=== PATIENT | female | born 1955 | race Caucasian/White ===

== ENCOUNTER → 2017-04-23 | Outpatient (CLI) | payer OTHER | END | disposition home or self-care (01) | LOC: MAMMO 16:45 | DX: Z12.31 Encounter for screening mammogram for malignant neoplasm of breast (principal) ==

== ENCOUNTER → 2017-12-30 | Outpatient (CLI) | payer OTHER | END | disposition home or self-care (01) | LOC: RAD 11:26 | DX: J20.9 Acute bronchitis, unspecified (principal); F17.200 Nicotine dependence, unspecified, uncomplicated; I10 Essential (primary) hypertension ==

== ENCOUNTER 2018-01-01 12:45 | Inpatient (IN) | payer OTHER ==
[~2018-01-01] VITALS: Ht 165.1 cm; Wt 94.8 kg
[2018-01-01 13:14] VITALS: BP 142/96
[2018-01-01 13:59] LABS: BASO % 0.4 % (0.0-1.0); EOS # 0.1 10*3/uL (0.0-0.4); EOS % 0.8 % (1.0-4.0); HEMATOCRIT 45.5 % (37.0-47.0); HEMOGLOBIN 14.9 g/dl (12.0-16.0); LYMPH % 29.5 % (27.0-41.0); MEAN CELL VOLUME 83.8 fl (81.0-99.0); MEAN CORPUSCULAR HGB 27.4 pg (27.0-31.0); MEAN CORPUSCULAR HGB CONC 32.7 g/dl (33.0-37.0); MEAN PLATELET VOLUME 9.5 fl (9.6-12.3); MONO # 0.7 10*3/uL (0.1-1.0); MONO % 6.4 % (3.0-9.0); NEUT # 6.3 10*3/uL (2.3-7.9); NEUT % 62.6 % (47.0-73.0); PLATELET COUNT AUTOMATED 319 10*3/uL (130-400); RED BLOOD COUNT 5.43 10*6/uL (4.10-5.10); RED CELL DISTRI WIDTH 14.9 % (0-14.5); WHITE BLOOD COUNT 10.1 10*3/uL (4.8-10.8)
[2018-01-01 14:16] LABS: ALKALINE PHOSPHATASE 79 U/L (45-117); BUN 17 mg/dl (7-24); CHLORIDE 101 mmol/L (98-107); POTASSIUM 4.1 mmol/L (3.5-5.1); SGOT/AST 19 IU/L (3-35); SGPT/ALT 34 U/L (12-78); SODIUM 136 mmol/L (136-145); TOTAL PROTEIN 7.7 gm/dL (6.4-8.2)
[2018-01-01 14:20] LABS: TROPONIN I < 0.015 ng/ml (<0.045)
[2018-01-01 14:44] VITALS: BP 115/78
[2018-01-01 15:10] VITALS: BP 127/71
[2018-01-01 16:00] VITALS: BP 127/71
[2018-01-01 20:00] VITALS: BP 142/74
[2018-01-02] VITALS: BP 131/70
[2018-01-02 02:13] LABS: BASO % 0.1 % (0.0-1.0); HEMATOCRIT 40.7 % (37.0-47.0); HEMOGLOBIN 13.3 g/dl (12.0-16.0); LYMPH # 1.1 10*3/uL (1.3-4.4); LYMPH % 10.7 % (27.0-41.0); MEAN CELL VOLUME 84.3 fl (81.0-99.0); MEAN CORPUSCULAR HGB 27.5 pg (27.0-31.0); MEAN CORPUSCULAR HGB CONC 32.7 g/dl (33.0-37.0); MEAN PLATELET VOLUME 9.6 fl (9.6-12.3); MONO # 0.2 10*3/uL (0.1-1.0); MONO % 1.5 % (3.0-9.0); NEUT # 9.1 10*3/uL (2.3-7.9); NEUT % 87.3 % (47.0-73.0); PLATELET COUNT AUTOMATED 290 10*3/uL (130-400); RED BLOOD COUNT 4.83 10*6/uL (4.10-5.10); RED CELL DISTRI WIDTH 14.7 % (0-14.5); WHITE BLOOD COUNT 10.5 10*3/uL (4.8-10.8)
[2018-01-02 02:31] LABS: ALBUMIN 3.6 gm/dl (3.1-4.5); ALKALINE PHOSPHATASE 69 U/L (45-117); BUN 16 mg/dl (7-24); CHLORIDE 99 mmol/L (98-107); CHOLESTEROL 150 mg/dL (<200); CREATININE 0.88 mg/dL (0.55-1.02); PHOSPHOROUS 2.8 mg/dL (2.5-4.9); POTASSIUM 3.8 mmol/L (3.5-5.1); SGOT/AST 21 IU/L (3-35); SGPT/ALT 29 U/L (12-78); SODIUM 135 mmol/L (136-145); TOTAL PROTEIN 7.1 gm/dL (6.4-8.2); TRIGLYCERIDES 51 mg/dl (<150); VLDL CHOLESTEROL 10 mg/dL (6-40)
[2018-01-02 02:37] LABS: FREE T4 1.12 ng/dl (0.76-1.46); HDL CHOLESTEROL 32 mg/dl (40-60); LDL CHOLESTEROL 108 mg/dL (9-159); THYROID STIM HORMONE (HS) 0.621 uIU/ml (0.358-4.75)
[2018-01-02 07:57] LABS: VITAMIN D, 25-HYDROXY 16.4 ng/mL (30-100)
[2018-01-02 08:46] VITALS: BP 119/61
[2018-01-02 12:00] VITALS: BP 150/61
[2018-01-02 16:00] VITALS: BP 140/68
[2018-01-02 20:00] VITALS: BP 139/71
[2018-01-03] VITALS: BP 111/54
[2018-01-03 07:47] LABS: BASO # 0.1 10*3/uL (0.0-0.1); BASO % 0.3 % (0.0-1.0); EOS % 0.1 % (1.0-4.0); HEMATOCRIT 39.1 % (37.0-47.0); HEMOGLOBIN 12.7 g/dl (12.0-16.0); LYMPH # 4.9 10*3/uL (1.3-4.4); LYMPH % 26.9 % (27.0-41.0); MEAN CELL VOLUME 85.6 fl (81.0-99.0); MEAN CORPUSCULAR HGB 27.8 pg (27.0-31.0); MEAN CORPUSCULAR HGB CONC 32.5 g/dl (33.0-37.0); MEAN PLATELET VOLUME 9.9 fl (9.6-12.3); MONO % 5.4 % (3.0-9.0); NEUT # 12.2 10*3/uL (2.3-7.9); NEUT % 66.8 % (47.0-73.0); PLATELET COUNT AUTOMATED 326 10*3/uL (130-400); RED BLOOD COUNT 4.57 10*6/uL (4.10-5.10); RED CELL DISTRI WIDTH 15.3 % (0-14.5); WHITE BLOOD COUNT 18.2 10*3/uL (4.8-10.8)
[2018-01-03 08:00] VITALS: BP 142/81
[2018-01-03 08:14] LABS: ALBUMIN 3.5 gm/dl (3.1-4.5); BUN 16 mg/dl (7-24); CHLORIDE 102 mmol/L (98-107); CREATININE 0.73 mg/dL (0.55-1.02); POTASSIUM 3.8 mmol/L (3.5-5.1); SGOT/AST 16 IU/L (3-35); SGPT/ALT 28 U/L (12-78); SODIUM 139 mmol/L (136-145); TOTAL PROTEIN 6.5 gm/dL (6.4-8.2)
[2018-01-03 08:15] LABS: ALKALINE PHOSPHATASE 67 U/L (45-117)
[2018-01-03] MEDS ORDERED: NICOTINE PATCH1 EAC2 TD (10:04)
[2018-01-03] MEDS ORDERED: VITAMIN D-32000 UNI1 PO (10:04)
[2018-01-03] MEDS ORDERED: PREDNISONE10 MG PO (10:04)
[2018-01-03] MEDS ORDERED: LEVOFLOXACIN500 MG PO (10:04)
== END 2018-01-03 11:50 | disposition home or self-care (01) | DRG 189 ==
LOC: ED 12:45 → 5E 14:32 → EDHOLD 14:32 → 5E 14:44
PROVIDERS: Emergency Medicine; Internal Medicine; Registered Nurse
DX: J96.01 Acute respiratory failure with hypoxia (principal); E87.2 Acidosis; J44.0 Chronic obstructive pulmonary disease with (acute) lower respiratory infection; J44.1 Chronic obstructive pulmonary disease with (acute) exacerbation; J20.9 Acute bronchitis, unspecified; I10 Essential (primary) hypertension; Z78.9 Other specified health status; Z72.0 Tobacco use; Z90.710 Acquired absence of both cervix and uterus; Z90.49 Acquired absence of other specified parts of digestive tract; Z81.8 Family history of other mental and behavioral disorders; Z82.49 Family history of ischemic heart disease and other diseases of the circulatory system; Z84.89 Family history of other specified conditions

== ENCOUNTER → 2018-04-03 | Outpatient (CLI) | payer OTHER ==
[~2018-04-03] MED LIST: LEVOFLOXACIN500 MG PO; NICOTINE PATCH1 EAC2 TD; PREDNISONE10 MG PO; VITAMIN D-32000 UNI1 PO
[2018-04-03 10:07] LABS: BUN 18 mg/dl (7-24); CREATININE 0.88 mg/dL (0.55-1.02)
== END | disposition home or self-care (01) ==
LOC: LAB 09:37 → CT 10:00
PROVIDERS: Internal Medicine Critical Care Medicine
DX: R91.1 Solitary pulmonary nodule (principal)

== ENCOUNTER → 2020-05-06 | Outpatient (CLI) | payer OTHER | END | disposition home or self-care (01) | LOC: RAD 12:03 | DX: M54.42 Lumbago with sciatica, left side (principal) ==

== ENCOUNTER → 2020-07-01 | Outpatient (CLI) | payer OTHER | END | disposition home or self-care (01) | LOC: MRI 12:27 | DX: M43.16 Spondylolisthesis, lumbar region (principal); M47.816 Spondylosis without myelopathy or radiculopathy, lumbar region; M47.817 Spondylosis without myelopathy or radiculopathy, lumbosacral region; M48.061 Spinal stenosis, lumbar region without neurogenic claudication ==

== ENCOUNTER → 2020-10-05 | Outpatient (CLI) | payer OTHER | END | disposition home or self-care (01) | LOC: RAD 16:03 | PROVIDERS: ATTEND Internal Medicine | DX: Z01.818 Encounter for other preprocedural examination (principal) ==

== ENCOUNTER → 2021-11-30 | Outpatient (CLI) | payer MEDICARE, OTHER | END | disposition home or self-care (01) | LOC: CT 13:40 | PROVIDERS: ATTEND Internal Medicine | DX: R22.1 Localized swelling, mass and lump, neck (principal); M25.78 Osteophyte, vertebrae ==

== ENCOUNTER 2022-02-20 05:22 | Inpatient (IN) | payer MEDICARE, OTHER ==
[~2022-02-20] VITALS: Ht 157.4 cm; Wt 103.1 kg
[2022-02-20 05:33] VITALS: BP 173/93
[2022-02-20 06:01] LABS: BASO % 0.4 % (0.0-1.0); EOS # 0.1 10*3/uL (0.0-0.4); EOS % 1.4 % (1.0-4.0); HEMATOCRIT 40.7 % (37.0-47.0); LYMPH # 2.7 10*3/uL (1.3-4.4); LYMPH % 27.8 % (27.0-41.0); MEAN CELL VOLUME 85.9 fl (81.0-99.0); MEAN CORPUSCULAR HGB 27.8 pg (27.0-31.0); MEAN CORPUSCULAR HGB CONC 32.4 g/dl (33.0-37.0); MEAN PLATELET VOLUME 9.5 fl (9.6-12.3); MONO # 0.5 10*3/uL (0.1-1.0); NEUT # 6.2 10*3/uL (2.3-7.9); PLATELET COUNT AUTOMATED 315 10*3/uL (130-400); RED BLOOD COUNT 4.74 10*6/uL (4.10-5.10); RED CELL DISTRI WIDTH 14.9 % (0-14.5); WHITE BLOOD COUNT 9.5 10*3/uL (4.8-10.8)
[2022-02-20 06:19] LABS: ALKALINE PHOSPHATASE 69 U/L (45-117); BUN 8 mg/dl (7-24); CHLORIDE 107 mmol/L (98-107); CREATININE 0.71 mg/dL (0.55-1.02); POTASSIUM 3.4 mmol/L (3.5-5.1); SGOT/AST 17 IU/L (3-35); SGPT/ALT 38 U/L (12-78); SODIUM 139 mmol/L (136-145); TOTAL PROTEIN 6.6 gm/dL (6.4-8.2)
[2022-02-20 06:20] LABS: ACT PARTIAL THROMBO TIME 30.5 SECONDS (20.0-32.1)
[2022-02-20 07:31] VITALS: BP 171/97
[2022-02-20 11:40] VITALS: BP 156/92
[2022-02-20] MEDS ORDERED: ALLERGY RELIEF1 EAC3 PO (12:08)
[2022-02-20] MEDS ORDERED: METFORMIN HYDR500 MG PO (12:08)
[2022-02-20] MEDS ORDERED: TRIAMTERENE & H1 CAP PO (12:08)
[2022-02-20] MEDS ORDERED: VITAMIN C500 M4 PO (12:09)
[2022-02-20] MEDS ORDERED: PEPCID20 MG PO (12:09)
[2022-02-20] MEDS ORDERED: PROBIOTIC250 MG PO (12:09)
[2022-02-20 16:00] VITALS: BP 115/59
[2022-02-20 20:00] VITALS: BP 137/77
[2022-02-21] VITALS: BP 135/77
[2022-02-21 06:14] LABS: BUN 12 mg/dl (7-24); CHLORIDE 104 mmol/L (98-107); CREATININE 0.76 mg/dL (0.55-1.02); POTASSIUM 3.8 mmol/L (3.5-5.1); SODIUM 136 mmol/L (136-145)
[2022-02-21 06:25] LABS: THYROID STIM HORMONE (HS) 0.506 uIU/ml (0.358-4.75)
[2022-02-21 06:30] LABS: BASO % 0.1 % (0.0-1.0); HEMATOCRIT 37.9 % (37.0-47.0); LYMPH # 1.7 10*3/uL (1.3-4.4); LYMPH % 11.5 % (27.0-41.0); MEAN CELL VOLUME 84.2 fl (81.0-99.0); MEAN CORPUSCULAR HGB 27.8 pg (27.0-31.0); MEAN PLATELET VOLUME 10.2 fl (9.6-12.3); MONO # 0.4 10*3/uL (0.1-1.0); MONO % 2.7 % (3.0-9.0); NEUT # 12.7 10*3/uL (2.3-7.9); NEUT % 85.1 % (47.0-73.0); PLATELET COUNT AUTOMATED 316 10*3/uL (130-400); RED CELL DISTRI WIDTH 14.7 % (0-14.5); WHITE BLOOD COUNT 14.9 10*3/uL (4.8-10.8)
[2022-02-21 08:00] VITALS: BP 128/68
[2022-02-21 12:00] VITALS: BP 125/69
[2022-02-21 15:53] VITALS: BP 119/60
[2022-02-21 15:54] VITALS: BP 132/56
[2022-02-21 20:00] VITALS: BP 128/75
[2022-02-22] VITALS: BP 161/81
[2022-02-22 06:40] LABS: BASO % 0.1 % (0.0-1.0); HEMATOCRIT 38.3 % (37.0-47.0); LYMPH # 1.7 10*3/uL (1.3-4.4); LYMPH % 11.4 % (27.0-41.0); MEAN CELL VOLUME 84.4 fl (81.0-99.0); MEAN CORPUSCULAR HGB CONC 33.2 g/dl (33.0-37.0); MONO # 0.4 10*3/uL (0.1-1.0); MONO % 2.6 % (3.0-9.0); NEUT # 12.7 10*3/uL (2.3-7.9); PLATELET COUNT AUTOMATED 311 10*3/uL (130-400); RED BLOOD COUNT 4.54 10*6/uL (4.10-5.10); WHITE BLOOD COUNT 14.9 10*3/uL (4.8-10.8)
[2022-02-22 06:57] LABS: CHLORIDE 106 mmol/L (98-107); POTASSIUM 4.1 mmol/L (3.5-5.1); SODIUM 137 mmol/L (136-145)
[2022-02-22 07:02] LABS: BUN 17 mg/dl (7-24); CREATININE 0.69 mg/dL (0.55-1.02)
[2022-02-22 08:00] VITALS: BP 134/71
[2022-02-22] MEDS ORDERED: LASIX20 MG PO (11:46)
[2022-02-22] MEDS ORDERED: PREDNISONE10 MG PO (11:46)
[2022-02-22] MEDS ORDERED: DOXYCYCLINE HY100 M3 PO (11:46)
[2022-02-22] MEDS ORDERED: K-TAB20 MEQ PO (11:46)
[2022-02-22 12:00] VITALS: BP 147/91
== END 2022-02-22 14:50 | disposition home or self-care (01) | DRG 871 ==
LOC: ED 05:22 → EDHOLD 10:08 → 4E 10:08
PROVIDERS: Emergency Medicine; Student in an Organized Health Care Education/Training Program; ADMIT Internal Medicine; ATTEND Internal Medicine
DX: A41.9 Sepsis, unspecified organism (principal); J18.9 Pneumonia, unspecified organism; J96.01 Acute respiratory failure with hypoxia; I50.33 Acute on chronic diastolic (congestive) heart failure; J44.1 Chronic obstructive pulmonary disease with (acute) exacerbation; J44.0 Chronic obstructive pulmonary disease with (acute) lower respiratory infection; Z20.822 Contact with and (suspected) exposure to COVID-19; R65.20 Severe sepsis without septic shock; F17.210 Nicotine dependence, cigarettes, uncomplicated; E87.6 Hypokalemia; R73.9 Hyperglycemia, unspecified; I11.0 Hypertensive heart disease with heart failure; R91.1 Solitary pulmonary nodule; Z90.49 Acquired absence of other specified parts of digestive tract; Z90.710 Acquired absence of both cervix and uterus; Z82.0 Family history of epilepsy and other diseases of the nervous system; Z79.899 Other long term (current) drug therapy; Z71.6 Tobacco abuse counseling; Z82.49 Family history of ischemic heart disease and other diseases of the circulatory system

== ENCOUNTER → 2022-02-26 | Outpatient (CLI) | payer MEDICARE, OTHER ==
[~2022-02-26] MED LIST changes: +ALLERGY RELIEF1 EAC3 PO; +DOXYCYCLINE HY100 M3 PO; +K-TAB20 MEQ PO; +LASIX20 MG PO; +METFORMIN HYDR500 MG PO; +PEPCID20 MG PO; +PROBIOTIC250 MG PO; +TRIAMTERENE & H1 CAP PO; +VITAMIN C500 M4 PO
[2022-02-26 08:19] LABS: HEMATOCRIT 46.7 % (37.0-47.0); MEAN CELL VOLUME 84.8 fl (81.0-99.0); MEAN CORPUSCULAR HGB 27.8 pg (27.0-31.0); MEAN CORPUSCULAR HGB CONC 32.8 g/dl (33.0-37.0); MEAN PLATELET VOLUME 9.8 fl (9.6-12.3); PLATELET COUNT AUTOMATED 430 10*3/uL (130-400); RED BLOOD COUNT 5.51 10*6/uL (4.10-5.10); RED CELL DISTRI WIDTH 15.2 % (0-14.5); WHITE BLOOD COUNT 21.4 10*3/uL (4.8-10.8)
[2022-02-26 08:20] LABS: MANUAL DIFF REFLEX YES
[2022-02-26 08:37] LABS: CHLORIDE 102 mmol/L (98-107); POTASSIUM 3.9 mmol/L (3.5-5.1); SODIUM 136 mmol/L (136-145)
[2022-02-26 08:50] LABS: ALKALINE PHOSPHATASE 72 U/L (45-117); BUN 21 mg/dl (7-24); CREATININE 0.86 mg/dL (0.55-1.02); SGOT/AST 14 IU/L (3-35); SGPT/ALT 40 U/L (12-78); TOTAL PROTEIN 7.1 gm/dL (6.4-8.2)
[2022-02-26 08:59] LABS: ATYPICAL LYMPHS 7 % (0-0); BASOPHILS 2 % (0-1); PLATELET SUFFICIENCY HIGH (NORMAL); POLYCHROMASIA SLIGHT; TOTAL CELLS COUNTED 100 #CELLS
== END | disposition home or self-care (01) ==
LOC: LAB 07:52
PROVIDERS: ATTEND Internal Medicine
DX: E87.6 Hypokalemia (principal); R73.9 Hyperglycemia, unspecified

== ENCOUNTER → 2022-07-27 | Outpatient (CLI) | payer MEDICARE, OTHER ==
[~2022-07-27] MED LIST changes: +FISH OIL 1,2001 EAC3 PO; +VITAMIN C1000 M5 PO; -VITAMIN C500 M4 PO
== END | disposition home or self-care (01) ==
LOC: CARD 02:16
PROVIDERS: ATTEND Internal Medicine
DX: R07.89 Other chest pain (principal)

== ENCOUNTER → 2022-08-09 | Outpatient (CLI) | payer MEDICARE, OTHER | END | disposition home or self-care (01) | LOC: MAMMO 09:43 | PROVIDERS: ATTEND Internal Medicine | DX: Z12.31 Encounter for screening mammogram for malignant neoplasm of breast (principal) ==

== ENCOUNTER → 2023-10-15 | Outpatient (CLI) | payer MEDICARE, OTHER | END | disposition home or self-care (01) | LOC: RAD 11:54 | PROVIDERS: ATTEND Speech-Language Pathologist | DX: R06.02 Shortness of breath (principal); M48.04 Spinal stenosis, thoracic region ==

== ENCOUNTER → 2024-11-25 | Outpatient (CLI) | payer MEDICARE, OTHER | END | disposition home or self-care (01) | LOC: RAD 12:49 | PROVIDERS: ATTEND Nurse Practitioner Family | DX: I51.7 Cardiomegaly (principal); R06.00 Dyspnea, unspecified ==

== ENCOUNTER → 2025-03-25 | Outpatient (CLI) | payer MEDICARE, OTHER | END | disposition home or self-care (01) | LOC: MAMMO 10:29 | PROVIDERS: ATTEND Nurse Practitioner Family | DX: Z12.31 Encounter for screening mammogram for malignant neoplasm of breast (principal); N64.89 Other specified disorders of breast; R92.1 Mammographic calcification found on diagnostic imaging of breast ==

== ENCOUNTER 2025-10-27 13:11 | Inpatient (IN) | payer MEDICARE ==
[~2025-10-27] VITALS: Ht 154.9 cm; Wt 108.6 kg
[2025-10-27 13:16] VITALS: BP 193/98
[2025-10-27] MEDS ORDERED: Albuterol Sulf/Ipratropium 3 ML VIAL NEB ONE (13:30)
[2025-10-27 13:59] LABS: BASO # 0.0 10*3/uL (0.0-0.1); BASO % 0.2 % (0.0-1.0); EOS # 0.1 10*3/uL (0.0-0.4); EOS % 0.6 % (1.0-4.0); MEAN CELL VOLUME 87.0 fl (81.0-99.0); MEAN CORPUSCULAR HGB 28.3 pg (27.0-31.0); MEAN PLATELET VOLUME 9.6 fl (9.6-12.3); MONO # 0.5 10*3/uL (0.1-1.0); MONO % 6.6 % (3.0-9.0); NEUT # 6.3 10*3/uL (2.3-7.9); NEUT % 77.9 % (47.0-73.0); NUCLEATED RED BLOOD CELL 0.0 % (0.0-0.0); NUCLEATED RED BLOOD CELL 0.0 10*3/uL (0.0-0.0); PLATELET COUNT AUTOMATED 299 10*3/uL (130-400); RED CELL DISTRI WIDTH 15.6 % (0-14.5)
[2025-10-27 14:11] LABS: BUN 11 mg/dl (9-23)
[2025-10-27] MEDS ORDERED: SODIUM CHLORIDE 0.9% 100 ML BAG IV ONE (15:20)
[2025-10-27] MEDS ORDERED: IOHEXOL 350 MG/ML 100 ML VIAL IV ONE (15:20)
[2025-10-27 15:29] LABS: BILIRUBIN Negative (Negative); BLOOD 1+ (Negative); CLARITY Clear (Clear); COLOR Yellow (Yellow); KETONE Negative (Negative); LEUKO ESTERASE Negative (Negative); NITRITE Negative (Negative); PH 7.5 (4.5-8.0); SPECIFIC GRAVITY 1.020 (1.001-1.030); UROBILINOGEN 0.2 E.U./dl (0.0-1.0)
[2025-10-27 15:37] LABS: BACTERIA 3+
[2025-10-27 15:59] VITALS: BP 130/77
[2025-10-27] MEDS ORDERED: OXYBUTYNIN5 MG PO (17:48)
[2025-10-27] MEDS ORDERED: Acetaminophen/Hydrocodone 5 MG/325 MG TABLET PO PRN (18:05)
[2025-10-27] MEDS ORDERED: BISACODYL 10 MG SUPP R PRN (18:05)
[2025-10-27] MEDS ORDERED: Ondansetron Hydrochloride 4 MG/2 ML VIAL IV PRN (18:05)
[2025-10-27] MEDS ORDERED: BISACODYL 5 MG TAB PO PRN (18:05)
[2025-10-27] MEDS ORDERED: Albuterol Sulf/Ipratropium 3 ML VIAL NEB SCH (18:10)
[2025-10-27] MEDS ORDERED: DEXTROSE 50% 25 GM/50 ML VIAL IV PRN (18:10)
[2025-10-27] MEDS ORDERED: AZITHROMYCIN 250 ML IV SCH (18:24)
[2025-10-27] MEDS ORDERED: FUROSEMIDE 20 MG/2 ML VIAL IV SCH (18:30)
[2025-10-27 18:33] VITALS: BP 127/63
[2025-10-27] MEDS ORDERED: SODIUM CHLORIDE 0.9% 1,000 ML IV ONE (18:50)
[2025-10-27 20:00] VITALS: BP 126/67
[2025-10-27] MEDS ORDERED: GUAIFENESIN 600 MG TAB ER PO SCH (22:00)
[2025-10-27] MEDS ORDERED: INSULIN LISPRO 1 UNIT/0.01 ML SQ SCH (22:00)
[2025-10-28] VITALS: BP 143/68
[2025-10-28 06:05] LABS: BUN 14 mg/dl (9-23); FREE T4 1.13 ng/dl (0.89-1.76); LDL CHOLESTEROL 124 mg/dL (9-159); SGPT/ALT 29 U/L (5-49)
[2025-10-28 06:23] LABS: BASO # 0.0 10*3/uL (0.0-0.1); BASO % 0.1 % (0.0-1.0); EOS # 0.0 10*3/uL (0.0-0.4); EOS % 0.0 % (1.0-4.0); MEAN CELL VOLUME 87.4 fl (81.0-99.0); MEAN CORPUSCULAR HGB 27.6 pg (27.0-31.0); MEAN PLATELET VOLUME 9.8 fl (9.6-12.3); MONO # 0.1 10*3/uL (0.1-1.0); MONO % 1.2 % (3.0-9.0); NEUT # 6.4 10*3/uL (2.3-7.9); NEUT % 83.8 % (47.0-73.0); NUCLEATED RED BLOOD CELL 0.0 % (0.0-0.0); NUCLEATED RED BLOOD CELL 0.0 10*3/uL (0.0-0.0); PLATELET COUNT AUTOMATED 328 10*3/uL (130-400); RED CELL DISTRI WIDTH 15.5 % (0-14.5)
[2025-10-28 06:26] LABS: ACT PARTIAL THROMBO TIME 29.5 SECONDS (20.0-32.1)
[2025-10-28 08:00] VITALS: BP 117/50
[2025-10-28 08:21] LABS: VITAMIN D, 25-HYDROXY 38.6 ng/mL (30-100)
[2025-10-28 12:00] VITALS: BP 130/65
[2025-10-28 16:00] VITALS: BP 118/53; BP 142/82
[2025-10-28 20:00] VITALS: BP 155/84
[2025-10-29] VITALS: BP 155/66
[2025-10-29 05:24] LABS: BUN 18 mg/dl (9-23)
[2025-10-29 05:59] LABS: BASO # 0.0 10*3/uL (0.0-0.1); BASO % 0.1 % (0.0-1.0); EOS # 0.0 10*3/uL (0.0-0.4); EOS % 0.0 % (1.0-4.0); MEAN CELL VOLUME 88.2 fl (81.0-99.0); MEAN CORPUSCULAR HGB 28.0 pg (27.0-31.0); MEAN PLATELET VOLUME 9.8 fl (9.6-12.3); MONO # 0.5 10*3/uL (0.1-1.0); MONO % 3.1 % (3.0-9.0); NEUT # 13.2 10*3/uL (2.3-7.9); NEUT % 85.9 % (47.0-73.0); NUCLEATED RED BLOOD CELL 0.0 % (0.0-0.0); NUCLEATED RED BLOOD CELL 0.0 10*3/uL (0.0-0.0); PLATELET COUNT AUTOMATED 324 10*3/uL (130-400); RED CELL DISTRI WIDTH 15.3 % (0-14.5)
[2025-10-29 08:00] VITALS: BP 149/87
[2025-10-29] MEDS ORDERED: HCTZ/Triamter 37.5/25 MG TAB PO SCH (10:00)
[2025-10-29] MEDS ORDERED: FAMOTIDINE 20 MG TAB PO SCH (10:00)
[2025-10-29 12:00] VITALS: BP 106/67
[2025-10-29] MEDS ORDERED: FUROSEMIDE 20 MG/2 ML VIAL IV ONE (14:20)
[2025-10-29 16:00] VITALS: BP 127/70
[2025-10-29 20:00] VITALS: BP 151/89
[2025-10-30] VITALS: BP 162/94
[2025-10-30 01:04] VITALS: BP 137/67
[2025-10-30 08:00] VITALS: BP 161/77
[2025-10-30] MEDS ORDERED: FUROSEMIDE 40 MG/4 ML VIAL IV SCH (10:00)
[2025-10-30] MEDS ORDERED: EMPAGLIFLOZIN 10 MG TABLET PO SCH (10:00)
[2025-10-30 12:00] VITALS: BP 146/72
[2025-10-30 12:52] LABS: ABG BASE EXCESS 6.0 mmol/L (-2.0-3.0); ABG O2 SATURATION 93.1 % (94.0-98.0); ARTERIAL BLOOD GAS PH 7.44 (7.350-7.450); ARTERIAL BLOOD GAS PO2 60.6 mmHg (83.0-108.0)
[2025-10-30 16:00] VITALS: BP 139/79
[2025-10-30 20:00] VITALS: BP 146/60
[2025-10-31] VITALS: BP 138/70
[2025-10-31 05:05] LABS: BUN 23 mg/dl (9-23)
[2025-10-31 06:12] LABS: BASO # 0.0 10*3/uL (0.0-0.1); BASO % 0.2 % (0.0-1.0); EOS # 0.0 10*3/uL (0.0-0.4); EOS % 0.0 % (1.0-4.0); MEAN CELL VOLUME 87.4 fl (81.0-99.0); MEAN CORPUSCULAR HGB 27.9 pg (27.0-31.0); MEAN PLATELET VOLUME 9.9 fl (9.6-12.3); MONO # 0.5 10*3/uL (0.1-1.0); MONO % 4.7 % (3.0-9.0); NEUT # 8.9 10*3/uL (2.3-7.9); NEUT % 76.9 % (47.0-73.0); NUCLEATED RED BLOOD CELL 0.0 % (0.0-0.0); NUCLEATED RED BLOOD CELL 0.0 10*3/uL (0.0-0.0); PLATELET COUNT AUTOMATED 353 10*3/uL (130-400); RED CELL DISTRI WIDTH 14.9 % (0-14.5)
[2025-10-31 08:00] VITALS: BP 154/81
[2025-10-31 12:00] VITALS: BP 128/74
[2025-10-31 16:00] VITALS: BP 126/64
[2025-10-31 20:00] VITALS: BP 121/52
[2025-10-31] MEDS ORDERED: FLUCONAZOLE 150 MG TAB PO ONE (23:35)
[2025-11-01] VITALS: BP 145/79
[2025-11-01] MEDS ORDERED: FLUCONAZOLE 150 MG TAB PO ONE (07:30)
[2025-11-01 08:00] VITALS: BP 135/82
[2025-11-01 12:00] VITALS: BP 147/78
[2025-11-01 16:00] VITALS: BP 146/73
[2025-11-01 20:00] VITALS: BP 137/85
[2025-11-02] VITALS: BP 128/57
[2025-11-02 08:00] VITALS: BP 138/87
[2025-11-02] MEDS ORDERED: FLUCONAZOLE 100 MG TAB PO SCH (10:00)
[2025-11-02 12:00] VITALS: BP 107/66
[2025-11-02 16:00] VITALS: BP 161/75
[2025-11-02 20:00] VITALS: BP 142/80
[2025-11-03] VITALS: BP 125/67
[2025-11-03 08:00] VITALS: BP 131/88
[2025-11-03] MEDS ORDERED: JARDIANCE10 MG PO (09:49)
[2025-11-03] MEDS ORDERED: FLUCONAZOLE100 MG PO (09:49)
[2025-11-03] MEDS ORDERED: LASIX40 MG PO (09:52)
[2025-11-03 11:56] VITALS: BP 128/77
== END 2025-11-03 15:30 | disposition home or self-care (01) | DRG 871 ==
LOC: ED 13:11 → EDHOLD 17:37 → 4E 17:37
PROVIDERS: Nurse Practitioner Family; Registered Nurse; Student in an Organized Health Care Education/Training Program; ADMIT Internal Medicine; ATTEND Internal Medicine
DX: A41.9 Sepsis, unspecified organism (principal); J18.9 Pneumonia, unspecified organism; J69.0 Pneumonitis due to inhalation of food and vomit; J96.01 Acute respiratory failure with hypoxia; J44.1 Chronic obstructive pulmonary disease with (acute) exacerbation; N39.0 Urinary tract infection, site not specified; J44.0 Chronic obstructive pulmonary disease with (acute) lower respiratory infection; I16.0 Hypertensive urgency; R73.9 Hyperglycemia, unspecified; Z20.822 Contact with and (suspected) exposure to COVID-19; I10 Essential (primary) hypertension; F17.210 Nicotine dependence, cigarettes, uncomplicated; R65.20 Severe sepsis without septic shock; E66.9 Obesity, unspecified; Z90.49 Acquired absence of other specified parts of digestive tract; Z90.710 Acquired absence of both cervix and uterus; Z82.49 Family history of ischemic heart disease and other diseases of the circulatory system; Z81.8 Family history of other mental and behavioral disorders; Z71.6 Tobacco abuse counseling; Z79.899 Other long term (current) drug therapy